=== PATIENT | female | born 1985 | race American Indian/Alaskan Native ===

== ENCOUNTER 2019-06-03 10:48 | Emergency (ER) | payer SELFPAY ==
[2019-06-03 11:05] VITALS: BP 113/72
[2019-06-03] MEDS ORDERED: KETOROLAC 30 MG/1 ML INJ IM ONE (11:29)
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
== END 2019-06-03 12:56 | disposition home or self-care (01) ==
LOC: ED 10:48
DX: S16.1XXA Strain of muscle, fascia and tendon at neck level, initial encounter (principal); S39.012A Strain of muscle, fascia and tendon of lower back, initial encounter; R52 Pain, unspecified; F17.200 Nicotine dependence, unspecified, uncomplicated; Z98.890 Other specified postprocedural states; Z79.899 Other long term (current) drug therapy; V49.49XA Driver injured in collision with other motor vehicles in traffic accident, initial encounter; Y93.89 Activity, other specified; Y92.410 Unspecified street and highway as the place of occurrence of the external cause; Y99.8 Other external cause status
CPT/HCPCS: 72040; 96372; 99283; J1885